=== PATIENT | female | born 1935 | race Caucasian/White ===

== ENCOUNTER → 2017-04-21 | Outpatient (CLI) | payer OTHER ==
[~2017-04-21] MED LIST: ADVAIR 250-501 EACH INH; ADVAIRDISKUS; ASPIRIN EC81 M1 PO; HYDROCHLOROTHIA25 M1; HYDROCHLOROTHIA25 M1 PO; KLOR-CON 10 ER10 MEQ PO; LUTEIN20 MG PO; NAPROSYN500 MG PO; OMEPRAZOLE40 MG PO; PREMARIN0.625 MG; STOOL SOFTENER50 MG PO; SYNTHROID137 MCG; SYNTHROID137 MCG PO
== END ==
LOC: RAD 01:06
DX: Z12.31 Encounter for screening mammogram for malignant neoplasm of breast (principal)

== ENCOUNTER → 2017-10-24 | Outpatient (CLI) | payer OTHER | LOC: RAD 10:12 | DX: J98.11 Atelectasis (principal); J98.4 Other disorders of lung; J45.40 Moderate persistent asthma, uncomplicated; T46.4X5A Adverse effect of angiotensin-converting-enzyme inhibitors, initial encounter ==

== ENCOUNTER → 2018-04-22 | Outpatient (CLI) | payer OTHER | LOC: RAD 01:30 | DX: Z12.31 Encounter for screening mammogram for malignant neoplasm of breast (principal); J45.40 Moderate persistent asthma, uncomplicated ==

== ENCOUNTER 2018-11-01 08:46 | Emergency (ER) | payer OTHER ==
[~2018-11-01] VITALS: Ht 154.9 cm; Wt 77.1 kg
[2018-11-01 09:23] LABS: ABSOLUTE NEUTROPHILS 3.9 thou/uL (1.4-8.2); BASOPHILS 0.5 % (0.0-2.0); EOSINOPHILS 1.7 % (0.0-3.0); HEMATOCRIT 35.6 % (37.0-47.0); LYMPHOCYTES 21.6 % (24.0-44.0); MCH 32.9 pg (26.0-34.0); MCHC 33.7 g/dL (28.0-37.0); MCV 97.6 fL (80.0-100.0); MONOCYTES 5.8 % (1.0-8.0); PLATELET COUNT 240 thou/uL (150-400); POLYS 70.4 % (36.0-66.0); RBC 3.65 mil/uL (4.20-5.00); RDW 14.4 % (10.5-14.5); WBC 5.6 thou/uL (4.0-11.0)
[2018-11-01 09:26] LABS: ANION GAP 8 mmol/L (7-16); BUN 25 mg/dL (7-18); CALCIUM 8.9 mg/dL (8.5-10.1); CHLORIDE 101 mmol/L (98-107); CO2 30 mmol/L (21-32); CREATININE 1.7 mg/dL (0.6-1.0); GLUCOSE 99 mg/dL (74-106); POTASSIUM 3.6 mmol/L (3.5-5.1); SODIUM 139 mmol/L (136-145)
[2018-11-01 09:35] LABS: ALBUMIN 3.4 g/dL (3.4-5.0); SGOT 23 U/L (15-37); SGPT 15 U/L (30-65); TOTAL BILIRUBIN 0.4 mg/dL (<0.1-1.0); TOTAL PROTEIN 7.4 g/dL (6.4-8.2); TROPONIN-I <0.06 ng/mL (<0.06)
[2018-11-01] MEDS ORDERED: OXYBUTYNIN 5 MG5 M2 PO ×2 (09:47)
[2018-11-01] MEDS ORDERED: IMDUR 30 MG TAB30 M1 PO (09:47)
[2018-11-01 10:19] VITALS: BP 125/69
--- NOTE | 2018-11-01 22:02 | EKG ---
[place] [address] [facility] [place] [address] ELECTROCARDIOGRAM REPORT Name: NIKHILKARINE Room #: [facility]P [facility] [id number] Admission: 11/01/18 Attend Phys: Discharge: 11/01/18 Date of : 33 Report #: [id number] THIS REPORT FOR: //name// [facility] ED Test Date: 2018-11-01 Test Time: 09:07:46 Pat Name: KARINE TEJEDA Department: Room: Gender: F Instructional Support Services Director: JLHARJINDER : 1935 Requested By: Matthew Lyle Order Number: [id number] MD: aPrmjit Mohamud Measurements Intervals [place] Rate: 81 P: 62 TX: 170 QRS: -15 QRSD: 94 T: 67 QT: 397 QTc: 461 Interpretive Statements Sinus rhythm Ventricular premature complex Borderline left axis deviation Borderline T abnormalities, lateral leads Compared to ECG 12/27/2010 09:48:54 T-wave abnormality now present Electronically Signed On 11-01-2018 22:02:37 [employer]MOD[employer]UCK [employer]IVER by Parmjit Mohamud [email or web address] <ELECTRONICALLY SIGNED> By: Parmjit Mohamud MD 11/01/18 2202 6 6 Parmjit Mohamud MD /CARLOS
== END 2018-11-01 10:28 | disposition home or self-care (01) ==
LOC: ER 08:46
PROVIDERS: Emergency Medicine
DX: I25.10 Atherosclerotic heart disease of native coronary artery without angina pectoris (principal); I49.3 Ventricular premature depolarization; R00.2 Palpitations; J45.909 Unspecified asthma, uncomplicated; J06.9 Acute upper respiratory infection, unspecified; E03.9 Hypothyroidism, unspecified; K21.9 Gastro-esophageal reflux disease without esophagitis

== ENCOUNTER → 2018-11-06 | Outpatient (CLI) | payer OTHER ==
[~2018-11-06] VITALS: Ht 154.9 cm; Wt 77.1 kg
[~2018-11-06] MED LIST changes: +IMDUR 30 MG TAB30 M1 PO; +OXYBUTYNIN 5 MG5 M2 PO; +SYNTHROID100 MC1 PO; +TYLENOL EXTRA500 MG PO
[2018-11-06 10:04] LABS: HEMATOCRIT 34.8 % (37.0-47.0); HEMOGLOBIN 11.7 gm/dL (12.0-15.0); MCH 33.2 pg (26.0-34.0); MCHC 33.7 g/dL (28.0-37.0); MCV 98.4 fL (80.0-100.0); RBC 3.54 mil/uL (4.20-5.00); RDW 14.7 % (10.5-14.5); WBC 6.7 thou/uL (4.0-11.0)
[2018-11-06 10:11] LABS: CALCIUM 9.1 mg/dL (8.5-10.1); CREATININE 1.6 mg/dL (0.6-1.0); POTASSIUM 3.6 mmol/L (3.5-5.1)
[2018-11-06 10:14] VITALS: BP 140/69
[2018-11-06 10:20] LABS: PROTIME 10.9 Seconds (9.3-11.4)
--- NOTE | 2018-11-06 13:42 | EKG ---
[address] [address] ELECTROCARDIOGRAM REPORT Name: KARINE TEJEDA Room #: REG CLAbena Morris#: [id number] Admission: 11/06/18 Attend Phys: Terrance Donovan Discharge: Date of : 33 Report #: [id number] THIS REPORT FOR: //name// [facility] Test Date: 2018-11-06 Test Time: 10:05:29 Pat Name: KARINE TEJEDA Department: Room: Gender: F Chief Physical Therapist: Chriss ALVARADO : 1935 Requested By: Terrance Donovan Order Number: [id number] MD: Parmjit Mohamud Measurements Intervals [place] Rate: 72 P: 60 MS: 166 QRS: -12 QRSD: 97 T: 61 QT: 433 QTc: 474 Interpretive Statements Sinus rhythm Compared to ECG 11/01/2018 09:07:46 Ventricular premature complex(es) no longer present T-wave abnormality no longer present Electronically Signed On 11-06-2018 13:42:20 TOUCH UP EDGER by Parmjit Mohamud [email or web address] <ELECTRONICALLY SIGNED> By: Parmjit Mohamud MD 11/06/18 1342 1005 1005 Parmjit Mohamud MD /EPI
--- NOTE | 2018-11-10 13:34 | CATHLAB ---
[facility] [address] [place] [address] INVASIVE PROCEDURE REPORT Name: KARINE TEJEDA Mehdi Room #: REG Arturo#: [id number] Admission: 11/06/18 Attend Phys: Terrance Murcia Discharge: Date of : 33 Date of Service: 11/10/18 1333 Report #: [id number] THIS REPORT FOR: //name// APPROVED REPORT Study performed: 11/06/2018 11:28:04 Patient Details Patient Status: Out-Patient Room #: The patient is a 83 year-old female Event Personnel Terrance Donovan Portable Machine Sander, Rory Wells RN RN, Martita Ornelas, Christin Monteiro RTR, [employer] MARKETING EXECUTIVE Scrub Procedures Performed Left Heart Cath w/or w/o Coronaries [id number] [facility], supervision of conscious sedation Indication Positive stress test, Chest pain Procedure Narrative The Right Groin^ was infiltrated with 1% Lidocaine subcutaneous anesthesia. A PINNACLE 4FR Sheath #[id number] sheath was inserted into the RFA 4F^. Coronary angiography was performed using coronary diagnostic catheters. The right coronary system was accessed and visualized with a JR4 catheter. The left coronary system was accessed and visualized with a JL4 catheter. The left ventricle was accessed and visualized with a PIGTAIL catheter. Left ventricular/Aortic Valve gradient assessed via catheter pullback. Hemostasis was obtained with manual pressure following sheath removal without any complications. The patient tolerated the procedure well and there were no complications associated with the procedure. There was no hematoma. Intraoperative Conscious Sedation Sedation start time: 11.47 Case end Time: 12.10 Versed 2 mg Fluoro Time: 2.04 minutes Dose: DAP 2427.40 cGycm2 347 mGy Contrast Type and Amount: Omnipaque 50 ml [facility] [address] [place] [address] INVASIVE PROCEDURE REPORT Name: KARINE TEJEDA Room #: REG [facility]#: [id number] Admission: 11/06/18 Attend Phys: Terrance Murcia Discharge: Date of : 33 Date of Service: 11/10/18 1333 Report #: [id number] Coronary Angiography The patient's coronary anatomy is right dominant. Diagnostic Cath Left Main Left main is of normal origin large caliber bifurcates that anterior descending left circumflex free of high-grade disease LAD Encounter time to vessel which has a narrowing proximally of approximately 20-25%. Then reconstitutes itself courses in the anterior interventricular sulcus giving rise to moderate caliber diagonal branch. The vessel is quite tortuous in its course as it tapers to a string at the ventricular apex. Diagonal 1 Moderate caliber vessel that courses along the anterolateral wall. Has a tortuous course which is free of high-grade disease. Circumflex Large-caliber nondominant vessel which courses in the AV groove a 7 early moderate marginal branch. This courses along the lateral aspect of the ventricle. Disease. Second marginal branch arises further down and is a large-caliber vessel coursing along the inferolateral wall towards the apex and is free of high-grade disease. Circumflex proper then continues on and terminates prior to reaching the crux of the heart but is anastomose with the aid tibial venous malformation and is visualized extending towards the pulmonary artery. OM1 Moderate caliber vessel free of high-grade disease OM2 Large-caliber vessel coursing along the lateral aspect of the left ventricle free of significant stenotic lesion. Is quite tortuous in its course as it reaches the apical region of the left ventricle is having obstructive lesions noted Right Coronary Large-caliber vessel of normal origin coursing the anterior interventricular sulcus. The crux of the heart a moderate caliber RV marginal branch arises which is free of high-grade disease. Beyond this is an eccentric 50-60% lesion of the RCA proper which is not flow-limiting. The vessel then continues on posteriorly a moderate caliber posterior descending artery and large posterolateral branch and a artery to the AV node. R PDA Moderate caliber vessel which gives rise to an early branch of some functions as a co-PDA. No high-grade lesions are noted only mild luminal irregularities are present RPLV Margin large-caliber vessel free of high-grade disease except towards his terminal point which there is some moderate irregularities present [facility] [address] [place] [address] INVASIVE PROCEDURE REPORT Name: KARINE TEJEDA Room #: REG TIBURCIO Morris#: [id number] Admission: 11/06/18 Attend Phys: Terrance Murcia Discharge: Date of : 33 Date of Service: 11/10/18 1333 Report #: [id number] Left Ventriculography Left Ventriculography was not performed. Hemodynamics The aortic pressure is 122/55 mmHg with a mean of 75 mmHg. The left ventricular pressure is 140/12 mmHg with a mean of mmHg. The left ventricular end diastolic pressure is 22 mmHg. There was no gradient across the aortic valve upon pullback. Pullback from the left ventricle to the aorta revealed no gradient across the aortic valve. Conclusion 1.. 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 Normal hemodynamics Recommendations Cardiac Risk Reduction Program Medical Therapy <ELECTRONICALLY SIGNED> By: Terrance Donovan MD 11/10/18 1333 133 1333 Terrance Donovan MD /INF
== END | disposition home or self-care (01) ==
LOC: CATH 09:32
PROVIDERS: Internal Medicine
DX: I25.10 Atherosclerotic heart disease of native coronary artery without angina pectoris (principal); I10 Essential (primary) hypertension; E03.9 Hypothyroidism, unspecified; K21.9 Gastro-esophageal reflux disease without esophagitis; M19.90 Unspecified osteoarthritis, unspecified site; J45.909 Unspecified asthma, uncomplicated; E66.09 Other obesity due to excess calories; Z90.710 Acquired absence of both cervix and uterus; Z98.890 Other specified postprocedural states; Z82.49 Family history of ischemic heart disease and other diseases of the circulatory system; Z79.899 Other long term (current) drug therapy

== ENCOUNTER → 2019-03-03 | Outpatient (CLI) | payer OTHER ==
[2019-03-03 14:22] LABS: HEMATOCRIT 36.9 % (37.0-47.0); HEMOGLOBIN 12.1 gm/dL (12.0-15.0); MCHC 32.9 g/dL (28.0-37.0); MCV 100.3 fL (80.0-100.0); RBC 3.68 mil/uL (4.20-5.00); RDW 15.1 % (10.5-14.5); WBC 6.9 thou/uL (4.0-11.0)
[2019-03-03 14:26] LABS: CALCIUM 9.1 mg/dL (8.5-10.1); CREATININE 1.6 mg/dL (0.6-1.0); POTASSIUM 4.3 mmol/L (3.5-5.1)
[2019-03-03 14:33] LABS: ALBUMIN 3.4 g/dL (3.4-5.0); TOTAL BILIRUBIN 0.6 mg/dL (<0.1-1.0); TOTAL PROTEIN 6.6 g/dL (6.4-8.2)
== END ==
LOC: RAD 11:47
PROVIDERS: Neuromusculoskeletal Medicine & OMM
DX: J45.991 Cough variant asthma (principal); M79.89 Other specified soft tissue disorders; I10 Essential (primary) hypertension; E03.9 Hypothyroidism, unspecified; E55.9 Vitamin D deficiency, unspecified

== ENCOUNTER → 2020-05-10 | Outpatient (CLI) | payer OTHER | LOC: LAB 11:26 | PROVIDERS: ATTEND Neuromusculoskeletal Medicine & OMM | DX: U07.1 COVID-19 (principal); R05 Cough ==

== ENCOUNTER → 2020-06-16 | Outpatient (CLI) | payer OTHER | LOC: SJCVC 13:23 | PROVIDERS: ATTEND Internal Medicine | DX: I11.9 Hypertensive heart disease without heart failure (principal); I25.10 Atherosclerotic heart disease of native coronary artery without angina pectoris; E78.5 Hyperlipidemia, unspecified; J45.909 Unspecified asthma, uncomplicated; Z79.899 Other long term (current) drug therapy; Z82.49 Family history of ischemic heart disease and other diseases of the circulatory system ==

== ENCOUNTER → 2020-09-26 | Outpatient (CLI) | payer OTHER | LOC: RAD 12:40 | PROVIDERS: ATTEND Neuromusculoskeletal Medicine & OMM | DX: Z12.31 Encounter for screening mammogram for malignant neoplasm of breast (principal) ==

== ENCOUNTER → 2020-12-20 | Outpatient (CLI) | payer OTHER | LOC: SJCVC 09:36 | PROVIDERS: ATTEND Internal Medicine | DX: R94.31 Abnormal electrocardiogram [ECG] [EKG] (principal); R07.9 Chest pain, unspecified; I49.3 Ventricular premature depolarization; I25.10 Atherosclerotic heart disease of native coronary artery without angina pectoris; E78.5 Hyperlipidemia, unspecified; J40 Bronchitis, not specified as acute or chronic; J18.9 Pneumonia, unspecified organism; Z79.899 Other long term (current) drug therapy; Z98.890 Other specified postprocedural states; Z82.49 Family history of ischemic heart disease and other diseases of the circulatory system; Z80.9 Family history of malignant neoplasm, unspecified ==

== ENCOUNTER → 2020-12-28 | Outpatient (CLI) | payer OTHER | LOC: SJCVCIMAG 08:53 | PROVIDERS: ATTEND Internal Medicine | DX: I25.10 Atherosclerotic heart disease of native coronary artery without angina pectoris (principal); I49.3 Ventricular premature depolarization; E78.5 Hyperlipidemia, unspecified; Z79.899 Other long term (current) drug therapy ==

== ENCOUNTER → 2021-09-27 | Outpatient (CLI) | payer OTHER | LOC: RAD 10:18 | PROVIDERS: ATTEND Neuromusculoskeletal Medicine & OMM | DX: Z12.31 Encounter for screening mammogram for malignant neoplasm of breast (principal) ==